=== PATIENT | female | born 1945 | race Caucasian/White ===

== ENCOUNTER 2023-03-28 11:01 | Outpatient (AMB) | payer MEDICARE, SELFPAY ==
[2023-03-28 11:22] VITALS: BP 148/78; PULSE 81; TEMP 36.8; O2SAT 96
--- NOTE | 2023-03-28 11:22 | AM.OFFWIN_ITS ---
Intake Vital Signs 03/28/23 11:22 Height 5 ft 6 in BP 148/78 H Blood Pressure Location Lt brachial Position Sitting Pulse 81 Pulse Source Pulse Oximeter Temp 98.3 F Temp Source Oral Pulse Oximetry (%) 96 Oxygen Delivery Method Room Air Intake Visit Reasons: [employer] Vaginal Itch/Burning (female Provider) Intake Note: Pt is here today for vaginal itch and burning,pt states it began Tuesday. Allergies No Known Allergies Allergy (Verified 03/28/23 11:23) Do you need a note to return to daycare/school/sports/work: No HPI [employer] Vaginal Itch/Burning (female Provider) HPI Details Patient presents with 4 days of vaginal itching and burning with some white thick discharge. She denies history of similar, has been to the same man for 60 years so denies concerns for STD, no recent antibiotic use but does note significant stress in her life at this time with family. She traveled here recently from [place] where she lives during winter. No recent medication changes she did have a cortisone injection in her back 4 months ago, she is not diabetic. She did try some vaginal cream which helped with symptoms but did not resolve them. Review of Systems Const Reports as per HPI and Reports no additional complaints Reports as per HPI Skin/Breast Denies lesions Physical Exam Vital Signs: Last Vital Signs Temp 98.3 F 03/28/23 11:22 Pulse 81 03/28/23 11:22 BP 148/78 H 03/28/23 11:22 Pulse Ox 96 03/28/23 11:22 Oxygen Delivery Method Room Air 03/28/23 11:22 Const General: cooperative, comfortable and no acute distress Orientation/consciousness: patient oriented x3 Resp Effort & Inspection: normal respiratory effort Auscultation: clear to auscultation bilaterally Cardio Rate: regular rate Rhythm: regular rhythm Heart sounds: S1 normal heart sound present and S2 normal heart sound present Other: Diagnosis was made clinically by HPI, patient declines exam today. Neuro General: patient oriented x3 Results AMB Urinalysis, Automated UA Leukoctes 500 Mariama/uL Last Edit by Keyanna Fletcher CMA on 03/28/23 11:33 UA Nitrite Negative Last Edit by Keyanna Fletcher CMA on 03/28/23 11:33 UA Urobilinogen 0.2 mg/dL Last Edit by Keyanna Fletcher CMA on 03/28/23 11:33 UA Protein 15 mg/dL Last Edit by Keyanna Fletcher CMA on 03/28/23 11:33 UA pH 6.0 Last Edit by Keyanna Fletcher CMA on 03/28/23 11:33 UA Blood 25 Rajan/uL Last Edit by Keyanna Fletcher CMA on 03/28/23 11:33 UA Specific Decker 1.025 Last Edit by Keyanna Fletcher CMA on 03/28/23 11:3 3 UA Ketone Negative Last Edit by Keyanna Fletcher, CHANEL on 03/28/23 11:33 UA Bilirubin 0 mg/dL Last Edit by Keyanna Fletcher CMA on 03/28/23 11:33 UA Glucose 100 mg/dL Last Edit by Keyanna Fletcher CMA on 03/28/23 11:33 Results Reviewed Results Reviewed: Laboratory Last Values Urine pH (Auto) 6.0 03/28/23 11:32 Specific Decker (Auto) 1.025 03/28/23 11:32 Urine Protein (Auto) 15 mg/dL 03/28/23 11:32 Glucose (UA)(Auto) 100 mg/dL 03/28/23 11:32 Urine Ketones (Auto) Negative 03/28/23 11:32 Urine Blood (Auto) 25 Rajan/uL 03/28/23 11:32 Urine Nitrite (Auto) Negative 03/28/23 11:32 Urine Bilirubin (Auto) 0 mg/dL 03/28/23 11:32 Urine Urobilinogen (Auto) 0.2 mg/dL 03/28/23 11:32 Leukocyte Esterase (Auto) 500 Mariama/uL 03/28/23 11:32 Assessment & Plan Assessment & Plan (1) Vaginitis: Code(s): N76.0 - Acute vaginitis Qualifiers: Chronicity: acute Qualified Code(s): N76.0 - Acute vaginitis Plan: Rx Diflucan for patient. Advise she continue to use vagisil to soothe the area as needed. Return to clinic if symptoms do not improve after 3 days if she should have an exam and culture done at that time. Of course lichen planus or other infection cannot be ruled out without exam. I did explain this to patient today. Orders: Orders AMB Urinalysis Automated Today Z13.9 - Encounter for screening, unspecified Leonel Sr MD Medications: New fluconazole (Diflucan) 1 pill with symptoms, take 2nd dose if symptoms persist after 72 hours 150 mg PO Q3D 2 tabs 0RF 2 doses SARTHAK Lassiter Coding Level of Care Code Est Pt Level 3 (15745) Diagnoses Vaginitis N76.0 Chronicity: acute
== END 2023-03-28 11:58 | disposition home or self-care (01) ==
PROVIDERS: PCP Internal Medicine; Visit Provider Physician Assistant
DX: N76.0 Acute vaginitis (principal)
CPT/HCPCS: 81003; 99213